=== PATIENT | female | born 1995 | race African-American/Black ===

== ENCOUNTER 2018-09-22 01:30 | Emergency (ER) | payer BC ==
[~2018-09-22] VITALS: Ht 167.6 cm; Wt 87.1 kg
[2018-09-22 01:37] VITALS: BP 145/90
[2018-09-22] MEDS ORDERED: CIPROFLOXIN HC2.5 M1 OPHTHALMIC (02:33)
== END 2018-09-22 02:32 | disposition home or self-care (01) ==
LOC: ER 01:30
DX: S05.02XA Injury of conjunctiva and corneal abrasion without foreign body, left eye, initial encounter (principal); H11.32 Conjunctival hemorrhage, left eye; Y04.2XXA Assault by strike against or bumped into by another person, initial encounter; Y92.89 Other specified places as the place of occurrence of the external cause; Y93.89 Activity, other specified; Y99.8 Other external cause status